=== PATIENT | male | born 1940 ===

== ENCOUNTER → 2022-10-10 | Outpatient (CLI) | payer OTHER ==
[2022-10-10 11:58] LABS: Urine WBC None Seen /hpf (0 - 3)
[2022-10-10 12:22] LABS: Basophils # (auto) 0 10 ^3/uL (0-0.2); Basophils % (auto) 0.4 % (0.0-2.0); Eosinophils # (auto) 0.1 10 ^3/uL (0-0.8); Eosinophils % (auto) 2.1 % (0.0-7.0); Hematocrit 46.3 % (41.0-53.0); Hemoglobin 15.5 g/dL (13.5-17.5); Mean Corpuscular Hemoglobin 30.6 pg (28.0-32.0); Mean Corpuscular Hgb Conc. 33.3 g/dL (32.0-36.0); Mean Corpuscular Volume 91.9 fL (80.0-100.0); Monocytes # (auto) 0.4 10 ^3/uL (0-1.3); Monocytes % (auto) 7.9 % (0.0-12.0); Neutrophils # (auto) 3.8 10 ^3/uL (1.6-8.6); Neutrophils % (auto) 71.6 % (37.0-80.0); Nucleated Red Blood Cells % 0.1 %; Red Blood Cells 5.04 10^6/uL (4.5-5.90); Red Cell Distribution Width 14.2 % (11.8-14.3); White Blood Cell 5.3 10^3/uL (4.4-10.8)
[2022-10-10 12:45] LABS: Potassium 4.2 mmol/L (3.5-5.1)
[2022-10-10 12:55] LABS: Albumin 3.9 g/dL (3.4-5.0); BUN/Creatinine Ratio 20.4; Bilirubin, Total 0.5 mg/dL (0.2-1.0); Calcium 10.3 mg/dL (8.5-10.1); Total Protein 7.2 g/dL (6.4-8.2)
[2022-10-10 13:48] LABS: Micro Albumin 6.57 mg/L (0-30.0)
[2022-10-10 15:01] LABS: Urine Bacteria NONE SEEN /hpf (None Seen); Urine Blood Negative /uL (Negative); Urine Specific Gravity 1.008 (1.001-1.035)
== END | disposition home or self-care (01) ==
LOC: LAB 11:25
PROVIDERS: ATTEND Internal Medicine
DX: I10 Essential (primary) hypertension (principal); E11.69 Type 2 diabetes mellitus with other specified complication; E78.5 Hyperlipidemia, unspecified
CPT/HCPCS: 36415; 80053; 80061; 81001; 82043; 82570; 83036; 84439; 84443; 85025

== ENCOUNTER → 2022-10-27 | Outpatient (CLI) | payer OTHER ==
[2022-10-27 09:48] LABS: BUN/Creatinine Ratio 19.3; Uric Acid 5.1 mg/dL (3.5-7.2)
== END | disposition home or self-care (01) ==
LOC: LAB 08:58
PROVIDERS: ATTEND Internal Medicine
DX: I12.9 Hypertensive chronic kidney disease with stage 1 through stage 4 chronic kidney disease, or unspecified chronic kidney disease (principal); E11.22 Type 2 diabetes mellitus with diabetic chronic kidney disease; N18.9 Chronic kidney disease, unspecified; E78.5 Hyperlipidemia, unspecified
CPT/HCPCS: 36415; 80048; 83970; 84550

== ENCOUNTER → 2023-04-26 | Outpatient (CLI) | payer OTHER | END | disposition home or self-care (01) | LOC: LAB 10:29 | PROVIDERS: ATTEND Internal Medicine | DX: Z00.01 Encounter for general adult medical examination with abnormal findings (principal); Z12.5 Encounter for screening for malignant neoplasm of prostate | CPT/HCPCS: 82274; 82306; 84153 ==

== ENCOUNTER → 2023-06-01 | Outpatient (CLI) | payer OTHER | END | disposition home or self-care (01) | LOC: LAB 08:54 | PROVIDERS: ATTEND Internal Medicine | DX: I12.9 Hypertensive chronic kidney disease with stage 1 through stage 4 chronic kidney disease, or unspecified chronic kidney disease (principal); E11.22 Type 2 diabetes mellitus with diabetic chronic kidney disease; N18.2 Chronic kidney disease, stage 2 (mild); E78.5 Hyperlipidemia, unspecified | CPT/HCPCS: 82274; 82306 ==

== ENCOUNTER → 2023-10-05 | Outpatient (CLI) | payer OTHER ==
[2023-10-05 08:21] LABS: Basophils # (auto) 0 10 ^3/uL (0-0.2); Basophils % (auto) 0.3 % (0.0-2.0); Eosinophils # (auto) 0.2 10 ^3/uL (0-0.8); Eosinophils % (auto) 2.4 % (0.0-7.0); Hematocrit 48.1 % (41.0-53.0); Hemoglobin 15.8 g/dL (13.5-17.5); Lymphocytes # (auto) 1.5 10 ^3/uL (0.4-5.4); Lymphocytes % (auto) 21.2 % (10.0-50.0); Mean Corpuscular Hemoglobin 29.9 pg (28.0-32.0); Mean Corpuscular Hgb Conc. 32.8 g/dL (32.0-36.0); Mean Corpuscular Volume 91.1 fL (80.0-100.0); Monocytes # (auto) 0.6 10 ^3/uL (0-1.3); Monocytes % (auto) 8.2 % (0.0-12.0); Neutrophils # (auto) 4.7 10 ^3/uL (1.6-8.6); Neutrophils % (auto) 67.9 % (37.0-80.0); Nucleated Red Blood Cells % 0.2 %; Red Blood Cells 5.29 10^6/uL (4.5-5.90); Red Cell Distribution Width 14.1 % (11.8-14.3); White Blood Cell 6.9 10^3/uL (4.4-10.8)
[2023-10-05 08:41] LABS: Urine Bacteria NONE SEEN /hpf (None Seen); Urine Blood Negative /uL (Negative); Urine Clarity Clear (Clear); Urine Color Yellow (Yellow); Urine Protein, UAD Negative (Negative); Urine Specific Gravity 1.012 (1.001-1.035); Urine Urobilinogen Normal (Negative); Urine WBC 1 /hpf (0 - 3)
[2023-10-05 09:59] LABS: Creatinine, Urine 102.71 mg/dL (30.0-125.0)
[2023-10-05 10:02] LABS: Micro Albumin < 3.0 mg/L (<30.0)
[2023-10-05 10:04] LABS: Alanine Aminotransferase 23 U/L (7-40); Albumin 4.3 g/dL (3.2-4.8); Alkaline Phosphatase 87 U/L (46-116); Anion Gap 5 (5-15); Aspartate Aminotransferase 22 U/L (13-40); BUN/Creatinine Ratio 10.9 (10.0-20.0); Blood Urea Nitrogen 11 mg/dL (9-23); Calcium 10.3 mg/dL (8.5-10.1); Carbon Dioxide 30 mmol/L (20-30); Chloride 104 mmol/L (98-107); Glucose 101 mg/dL (74-106); LDL Cholesterol 48 mg/dL (< 100); Potassium 4.2 mmol/L (3.5-5.1); Sodium 139 mmol/L (136-145); Triglycerides 115 mg/dL (< 150)
[2023-10-05 10:05] LABS: Bilirubin, Total 1.1 mg/dL (0.2-1.0); Cholesterol 107 mg/dL (< 200); HDL Cholesterol 40 mg/dL (40-59); Total Protein 6.8 g/dL (5.7-8.2)
== END | disposition home or self-care (01) ==
LOC: LAB 08:04
PROVIDERS: ATTEND Internal Medicine
DX: E11.22 Type 2 diabetes mellitus with diabetic chronic kidney disease (principal); N18.2 Chronic kidney disease, stage 2 (mild); E11.69 Type 2 diabetes mellitus with other specified complication
CPT/HCPCS: 36415; 80053; 80061; 81001; 82043; 82306; 82570; 83036; 84439; 84443; 85025

== ENCOUNTER → 2023-10-16 | Outpatient (CLI) | payer OTHER ==
[2023-10-16 11:50] LABS: Free T3 3.55 pg/mL (2.3-4.2); Free T4 (Free Thyroxine) 0.99 ng/dL (0.89-1.76)
== END | disposition home or self-care (01) ==
LOC: LAB 10:15
PROVIDERS: ATTEND Internal Medicine
DX: R79.89 Other specified abnormal findings of blood chemistry (principal)
CPT/HCPCS: 36415; 84439; 84443; 84481

== ENCOUNTER → 2024-11-06 | Outpatient (CLI) | payer OTHER ==
[2024-11-06 10:22] LABS: Urine Bacteria None Seen /hpf (None Seen)
[2024-11-06 10:42] LABS: Basophils # (auto) 0 10 ^3/uL (0-0.2); Basophils % (auto) 0.4 % (0.0-2.0); Eosinophils # (auto) 0.1 10 ^3/uL (0-0.8); Eosinophils % (auto) 2.1 % (0.0-7.0); Hematocrit 48.4 % (41.0-53.0); Hemoglobin 16.3 g/dL (13.5-17.5); Lymphocytes # (auto) 1.4 10 ^3/uL (0.4-5.4); Lymphocytes % (auto) 19.9 % (10.0-50.0); Mean Corpuscular Hemoglobin 31.3 pg (28.0-32.0); Mean Corpuscular Hgb Conc. 33.7 g/dL (32.0-36.0); Monocytes # (auto) 0.5 10 ^3/uL (0-1.3); Monocytes % (auto) 7.7 % (0.0-12.0); Neutrophils # (auto) 4.8 10 ^3/uL (1.6-8.6); Neutrophils % (auto) 69.9 % (37.0-80.0); Platelet Count (auto) 155 10^3/uL (140-450); Red Cell Distribution Width 14.8 % (11.8-14.3); White Blood Cell 6.9 10^3/uL (4.4-10.8)
[2024-11-06 11:08] LABS: Alanine Aminotransferase 24 U/L (7-40); Albumin 4.5 g/dL (3.2-4.8); Alkaline Phosphatase 94 U/L (46-116); Anion Gap 5 (5-15); Aspartate Aminotransferase 17 U/L (13-40); BUN/Creatinine Ratio 15.9 (10.0-20.0); Blood Urea Nitrogen 17 mg/dL (9-23); Chloride 105 mmol/L (98-107); LDL Cholesterol 55 mg/dL (< 100); Potassium 4.6 mmol/L (3.5-5.1); Sodium 142 mmol/L (136-145); Total Protein 7.1 g/dL (5.7-8.2); Triglycerides 99 mg/dL (< 150)
[2024-11-06 11:09] LABS: Bilirubin, Total 0.7 mg/dL (0.2-1.0); Cholesterol 121 mg/dL (< 200); HDL Cholesterol 53 mg/dL (40-59)
[2024-11-06 11:11] LABS: Calcium 11.4 mg/dL (8.7-10.4); Carbon Dioxide 32 mmol/L (20-31); Glucose 132 mg/dL (74-106)
[2024-11-06 11:26] LABS: Urine Blood Negative /uL (Negative); Urine Clarity Clear (Clear); Urine Color Light-Yellow (Yellow); Urine Protein, UAD Negative (Negative); Urine Specific Gravity 1.013 (1.001-1.035); Urine Squamous Epithelial Cell FEW /hpf (<5); Urine Urobilinogen Normal (Negative); Urine WBC 38 /HPF (0-3)
== END | disposition home or self-care (01) ==
LOC: LAB 10:12
PROVIDERS: ATTEND Internal Medicine
DX: N40.1 Benign prostatic hyperplasia with lower urinary tract symptoms (principal); I12.9 Hypertensive chronic kidney disease with stage 1 through stage 4 chronic kidney disease, or unspecified chronic kidney disease; E11.22 Type 2 diabetes mellitus with diabetic chronic kidney disease; N18.2 Chronic kidney disease, stage 2 (mild)
CPT/HCPCS: 36415; 80053; 80061; 81001; 82043; 82570; 83036; 84439; 84443; 85025

== ENCOUNTER → 2024-12-12 | Outpatient (CLI) | payer OTHER ==
[2024-12-12 10:50] LABS: Urine Bacteria None Seen /hpf (None Seen)
[2024-12-12 11:17] LABS: Alanine Aminotransferase 20 U/L (7-40); Albumin 4.4 g/dL (3.2-4.8); Alkaline Phosphatase 84 U/L (46-116); Anion Gap 7 (5-15); Aspartate Aminotransferase 15 U/L (13-40); BUN/Creatinine Ratio 17.8 (10.0-20.0); Bilirubin, Total 0.7 mg/dL (0.2-1.0); Blood Urea Nitrogen 18 mg/dL (9-23); Chloride 103 mmol/L (98-107); Potassium 4.5 mmol/L (3.5-5.1); Sodium 141 mmol/L (136-145); Total Protein 7.1 g/dL (5.7-8.2)
[2024-12-12 11:18] LABS: Calcium 10.6 mg/dL (8.7-10.4); Carbon Dioxide 31 mmol/L (20-31); Glucose 134 mg/dL (74-106)
[2024-12-12 11:23] LABS: Urine Blood Negative /uL (Negative); Urine Clarity Clear (Clear); Urine Color Light-Yellow (Yellow); Urine Protein, UAD Negative (Negative); Urine Specific Gravity 1.014 (1.001-1.035); Urine Squamous Epithelial Cell FEW /hpf (<5); Urine Urobilinogen Normal (Negative); Urine WBC < 1 /HPF (0-3)
[2024-12-12 11:28] LABS: Prostate Specific Antigen 2.36 ng/mL (0.0-4.0)
[2024-12-12 11:31] LABS: Free T3 3.17 pg/mL (2.3-4.2)
[2024-12-12 11:32] LABS: Free T4 (Free Thyroxine) 1.04 ng/dL (0.89-1.76)
== END | disposition home or self-care (01) ==
LOC: LAB 10:31
PROVIDERS: ATTEND Internal Medicine
DX: N40.1 Benign prostatic hyperplasia with lower urinary tract symptoms (principal); I12.9 Hypertensive chronic kidney disease with stage 1 through stage 4 chronic kidney disease, or unspecified chronic kidney disease; E11.22 Type 2 diabetes mellitus with diabetic chronic kidney disease; N18.2 Chronic kidney disease, stage 2 (mild); E11.29 Type 2 diabetes mellitus with other diabetic kidney complication; Z12.11 Encounter for screening for malignant neoplasm of colon; E83.52 Hypercalcemia; R35.1 Nocturia; R32 Unspecified urinary incontinence; R80.9 Proteinuria, unspecified; R79.89 Other specified abnormal findings of blood chemistry
CPT/HCPCS: 36415; 80053; 81001; 84153; 84439; 84443; 84481

== ENCOUNTER → 2024-12-19 | Outpatient (CLI) | payer OTHER | END | disposition home or self-care (01) | LOC: LAB 12-18 15:07 | PROVIDERS: ATTEND Internal Medicine | DX: Z12.11 Encounter for screening for malignant neoplasm of colon (principal); N40.1 Benign prostatic hyperplasia with lower urinary tract symptoms; I12.9 Hypertensive chronic kidney disease with stage 1 through stage 4 chronic kidney disease, or unspecified chronic kidney disease; E11.22 Type 2 diabetes mellitus with diabetic chronic kidney disease; N18.2 Chronic kidney disease, stage 2 (mild); E11.29 Type 2 diabetes mellitus with other diabetic kidney complication; E83.52 Hypercalcemia; R35.1 Nocturia; R80.9 Proteinuria, unspecified; R32 Unspecified urinary incontinence; R79.89 Other specified abnormal findings of blood chemistry | CPT/HCPCS: 82270 ==

== ENCOUNTER 2025-03-26 08:14 | Outpatient (CLI) | payer OTHER ==
[2025-03-26 09:07] LABS: Urine Protein, UAD Negative (Negative)
[2025-03-26 09:16] LABS: Hematocrit 47.1 % (41.0-53.0); Hemoglobin 15.8 g/dL (13.5-17.5); Mean Corpuscular Hemoglobin 30.9 pg (28.0-32.0); Mean Corpuscular Volume 92.1 fL (80.0-100.0); Nucleated Red Blood Cells % 0.1 %
[2025-03-26 09:36] LABS: Alanine Aminotransferase 29 U/L (7-40); Alkaline Phosphatase 79 U/L (46-116); Anion Gap 8 (5-15); BUN/Creatinine Ratio 15.3 (10.0-20.0); Blood Urea Nitrogen 15 mg/dL (9-23); Carbon Dioxide 27 mmol/L (20-31); Chloride 107 mmol/L (98-107); Magnesium 2.1 mg/dL (1.6-2.6); Potassium 4.4 mmol/L (3.5-5.1); Sodium 142 mmol/L (136-145); Total Protein 6.8 g/dL (5.7-8.2); Triglycerides 85 mg/dL (< 150)
[2025-03-26 09:37] LABS: Albumin 4.5 g/dL (3.2-4.8); Cholesterol 111 mg/dL (< 200); HDL Cholesterol 46 mg/dL (40-59)
[2025-03-26 09:38] LABS: Bilirubin, Total 0.9 mg/dL (0.2-1.0)
[2025-03-26 09:45] LABS: Calcium 10.9 mg/dL (8.7-10.4); Glucose 107 mg/dL (74-106)
[2025-03-26 10:59] LABS: Uric Acid 6.7 mg/dL (3.7-9.2)
== END 2025-03-26 17:00 | disposition home or self-care (01) ==
LOC: LAB 08:14
PROVIDERS: ATTEND Internal Medicine
DX: E78.49 Other hyperlipidemia (principal); E61.2 Magnesium deficiency; E79.0 Hyperuricemia without signs of inflammatory arthritis and tophaceous disease; E55.9 Vitamin D deficiency, unspecified; D51.9 Vitamin B12 deficiency anemia, unspecified; R68.89 Other general symptoms and signs; R73.09 Other abnormal glucose; R94.6 Abnormal results of thyroid function studies; R82.998 Other abnormal findings in urine; R82.79 Other abnormal findings on microbiological examination of urine
CPT/HCPCS: 36415; 80053; 80061; 81001; 82306; 82607; 82746; 83036; 83735; 84443; 84480; 84550; 85025; 87086

== ENCOUNTER 2025-08-18 08:22 | Outpatient (CLI) | payer OTHER ==
[2025-08-18 09:15] LABS: Hematocrit 47.5 % (41.0-53.0); Hemoglobin 15.8 g/dL (13.5-17.5); Mean Corpuscular Hemoglobin 30.6 pg (28.0-32.0); Mean Corpuscular Volume 91.9 fL (80.0-100.0); Nucleated Red Blood Cells % 0.0 %
[2025-08-18 09:19] LABS: Urine Protein, UAD Negative (Negative)
[2025-08-18 09:36] LABS: Alanine Aminotransferase 21 U/L (7-40); Albumin 4.3 g/dL (3.2-4.8); Alkaline Phosphatase 82 U/L (46-116); Anion Gap 8 (5-15); BUN/Creatinine Ratio 11.3 (10.0-20.0); Blood Urea Nitrogen 12 mg/dL (9-23); Carbon Dioxide 30 mmol/L (20-31); Chloride 105 mmol/L (98-107); Magnesium 2.3 mg/dL (1.6-2.6); Potassium 4.9 mmol/L (3.5-5.1); Sodium 143 mmol/L (136-145); Total Protein 7.0 g/dL (5.7-8.2); Triglycerides 106 mg/dL (< 150)
[2025-08-18 09:37] LABS: Bilirubin, Total 0.5 mg/dL (0.2-1.0); Calcium 10.9 mg/dL (8.7-10.4); Cholesterol 122 mg/dL (< 200); Glucose 110 mg/dL (74-106); HDL Cholesterol 51 mg/dL (40-59)
[2025-08-18 11:03] LABS: Uric Acid 8.9 mg/dL (3.7-9.2)
== END 2025-08-18 17:00 | disposition home or self-care (01) ==
LOC: LAB 08:22
PROVIDERS: ATTEND Internal Medicine
DX: E11.9 Type 2 diabetes mellitus without complications (principal); E78.49 Other hyperlipidemia; E61.2 Magnesium deficiency; E79.0 Hyperuricemia without signs of inflammatory arthritis and tophaceous disease; E55.9 Vitamin D deficiency, unspecified; D51.9 Vitamin B12 deficiency anemia, unspecified; R82.79 Other abnormal findings on microbiological examination of urine; R82.90 Unspecified abnormal findings in urine; R82.998 Other abnormal findings in urine; R94.6 Abnormal results of thyroid function studies; R68.89 Other general symptoms and signs
CPT/HCPCS: 36415; 80053; 80061; 81001; 82306; 82607; 82746; 83036; 83735; 84443; 84480; 84550; 85025; 87086